=== PATIENT | male | born 1990 | race Caucasian/White ===

== ENCOUNTER 2017-05-01 23:22 | Emergency (ER) | payer SELFPAY ==
[~2017-05-01] VITALS: Ht 167.6 cm; Wt 79.0 kg
[2017-05-02 00:09] VITALS: BP 110/73
[2017-05-02] MEDS ORDERED: PREDNISONE 20MG TABLET PO ONE (01:30)
== END 2017-05-02 01:42 | disposition home or self-care (01) ==
LOC: ER 23:22
DX: R05 Cough (principal); M54.9 Dorsalgia, unspecified; R50.9 Fever, unspecified; F12.10 Cannabis abuse, uncomplicated
CPT/HCPCS: 71010; 99283; J7512

== ENCOUNTER 2017-06-16 10:54 | Emergency (ER) | payer MEDICAID ==
[~2017-06-16] VITALS: Ht 180.3 cm; Wt 75.0 kg
[2017-06-16] MEDS ORDERED: ONDANSETRON 4MG ODT PO ONE (12:00)
[2017-06-16] MEDS ORDERED: DEXT 5%/0.45% NACL 500ML 500 ML IV ONE (12:00)
[2017-06-16 12:55] LABS: *AMPHETAMINES SCREEN URINE NEGATIVE (NEGATIVE); *BARBITURATES SCREEN URINE NEGATIVE (NEGATIVE); *BENZODIAZEPINES SCREEN URINE NEGATIVE (NEGATIVE); *COCAINE SCREEN URINE NEGATIVE (NEGATIVE); CANNABINOID URINE SCREEN NEGATIVE (NEGATIVE); METHADONE URINE SCREEN NEGATIVE (NEGATIVE); OPIATES URINE SCREEN NEGATIVE (NEGATIVE); PHENCYCLIDINE URINE SCREEN NEGATIVE (NEGATIVE)
[2017-06-16 13:05] LABS: BASOPHILS % 0.4 % (0.0-2.0); EOSINOPHILS % 0.8 % (0.0-5.0); HEMATOCRIT. 36.8 % (42.0-52.0); HEMOGLOBIN. 12.7 g/dL (14.0-18.0); LYMPHOCYTES % 7.8 % (20.0-50.0); MEAN CORPUSCULAR HEMOGLOBIN 29.8 pg (28.0-32.0); MEAN CORPUSCULAR VOLUME 86.6 fL (80.0-94.0); MEAN PLATELET VOLUME 9.9 fl (7.4-10.4); MONOCYTES % 5.4 % (2.0-8.0); NEUTROPHILS % 85.6 % (40.0-76.0); PLATELET 129 x1000/uL (130-400); RED BLOOD CELL COUNT 4.25 mill/uL (4.7-6.1); RED CELL DISTRIBUTION WIDTH 13.4 % (11.6-14.6)
[2017-06-16 13:12] LABS: CHLORIDE 96 mEq/L (98-107)
[2017-06-16 13:55] VITALS: BP 102/59
== END 2017-06-16 14:12 | disposition home or self-care (01) ==
LOC: ER 10:58
DX: E86.0 Dehydration (principal); E44.1 Mild protein-calorie malnutrition; R11.0 Nausea; R44.0 Auditory hallucinations
CPT/HCPCS: 36415; 80053; 80305; 80307; 80329; 85025; 99284; Q0162; X7700; Z7610